=== PATIENT | male | born 1995 | race Caucasian/White ===

== ENCOUNTER → 2019-05-30 08:34 | Outpatient (CLI) | payer BC, SELFPAY ==
--- NOTE | 2019-05-30 08:44 | CT_ITS ---
PROCEDURE: CT SINUS WO CON CLINICAL HISTORY: CHRONIC MAXILLRY SINUSITIS Chronic maxillary sinusitis COMPARISON: No exams were available for comparison TECHNIQUE: Axial images obtained with sagittal and coronal reformats. All CT scans at the facility use one or more dose reduction, viz: automated exposure control, ma/kV adjustment per patient size (including targeted exams where dose is matched to indication, i.e. head), or iterative reconstruction technique. FINDINGS: The frontal sinus is prominent. There is mild mucosal thickening of the frontal ethmoid region on the left inferiorly. Moderate mucosal thickening involves the anterior aspect of the left ethmoid sinus as well as the mid aspect of both ethmoid sinuses. There near complete opacification of the right maxillary sinus with some pneumatization centrally and superiorly. There is some hyperdensity of the opacification of the right maxillary sinus suggesting chronic sinusitis. There is a small air-fluid level superiorly in the right maxillary sinus. There is mild to moderate mucosal thickening of the left maxillary sinus. There is occlusion of both ostiomeatal complexes and there is mild mucosal thickening of the sphenoid sinus. There is moderate nasal septal deviation toward the right in the mid aspect of the nasal septum. Scattered small lymph nodes are present in the neck. The mastoid sinuses have an unremarkable appearance The TMJs have an unremarkable appearance. The orbits are unremarkable. IMPRESSION: Prominent paranasal sinus inflammatory changes are present involving all sinuses most extensive in the right maxillary sinus with a small air-fluid level within the central aspect of hyperdensity in the right maxillary sinus suggesting acute upon chronic sinusitis some hyperdensity in the mid aspect of the right maxillary sinus suggesting chronic sinusitis Dictated by: Kyle Lubin MD 05/31/2019 13:24 Electronically signed by Kyle Lubin MD in [place] 05/31/2019 13:24
== END ==
PROVIDERS: PCP Family Medicine; Visit Provider Family Medicine
DX: J32.0 Chronic maxillary sinusitis (principal)
CPT/HCPCS: 70486